=== PATIENT | male | born 1960 | race Caucasian/White ===

== ENCOUNTER 2022-11-27 08:28 | Outpatient (REF) | payer OTHER, SELFPAY | END 2022-11-27 08:29 | disposition home or self-care (01) | LOC: HO.LAB 08:28 | PROVIDERS: Visit Provider Surgery | DX: Z13.89 Encounter for screening for other disorder (principal) ==

== ENCOUNTER 2022-11-29 07:43 | Outpatient (REF) | payer OTHER, SELFPAY ==
[2022-11-29 08:57] LABS: Alanine Aminotransferase 31 U/L (0-40); Albumin Level 4.1 g/dL (3.5-5.0); Alkaline Phosphatase 62 U/L (39-117); Anion Gap 12 (12-20); Aspartate Amino Transferase 27 U/L (5-37); Bilirubin Total 1.2 mg/dL (0.0-1.0); Blood Urea Nitrogen 20 mg/dL (9-16); Calcium 9.1 mg/dL (8.4-10.2); Carbon Dioxide 24 mmol/L (22-29); Chloride 108 mmol/L (96-108); Cholesterol 239 mg/dL; Estimated Glomerular Filt Rate > 60; Glucose Fasting 96 mg/dL (60-99); HDL Cholesterol 47 mg/dL; LDL Cholesterol Calculated 179 mg/dl; Potassium 4.5 mmol/L (3.3-5.1); Sodium 139 mmol/L (135-145); Total Protein 7.4 g/dL (6.5-8.0); Triglycerides 67 mg/dL
[2022-11-29 09:11] LABS: Prostate Specific Antigen 1.28 ng/mL (<0.05-4.0)
== END 2022-11-29 07:44 | disposition home or self-care (01) ==
LOC: HO.LAB 07:43
PROVIDERS: Visit Provider Surgery
DX: Z12.5 Encounter for screening for malignant neoplasm of prostate (principal)
CPT/HCPCS: 36415; 80053; 80061; 84153

== ENCOUNTER 2023-06-29 07:58 | Outpatient (REF) | payer OTHER, SELFPAY ==
--- NOTE | ~2023-06-29 | MR_ITS ---
EXAMINATION: MR CERVICAL SPINE WITHOUT CONTRAST CLINICAL INFORMATION: Evaluate for radiculopathy/stenosis. COMPARISON: There are no prior studies available for comparison at time of dictation. TECHNIQUE: MRI of the cervical spine was obtained using routine sequences without contrast. Some images are degraded by patient motion artifact. FINDINGS: VERTEBRAL BODIES AND PARASPINAL SOFT TISSUES: There is reversal of the normal cervical lordosis. There is a mild anterolisthesis of C2 on C3, and there are mild retrolistheses of C3 on C4 and C5 on C6. There is multilevel narrowing of intervertebral disc height which is most severe at C5-C6 and C6-C7. There are degenerative endplate contour changes with mild edematous signal toward the left at C5-C6 and anteriorly at C6-C7. Vertebral body heights are maintained, and no fractures are demonstrated. Overall, marrow signal is homogenous. The regional soft tissues are unremarkable. CERVICOMEDULLARY JUNCTION AND VISUALIZED POSTERIOR FOSSA: The craniocervical and posterior fossa structures are normal. There are small foci of increased signal within the spinal cord left right of midline at the level of C6, most consistent with myelomalacia. There is an equivocal focus on the right at the level of C5. There is apparent thickening of the posterior longitudinal ligament between C2-C3 and C6-C7. SPINAL LEVELS: C2-C3: There is mild bilateral facet arthropathy. Posterior disc contour is normal with no spinal cord compression or central stenosis. There are uncovertebral osteophytes and there is moderate left and mild right foraminal narrowing. C3-C4: There is mild bilateral facet arthropathy. There is a broad-based posterior disc protrusion which effaces CSF around the cord without spinal cord compression. There is mild central stenosis. There are uncovertebral osteophytes, and there is severe right and moderate severe left foraminal narrowing. C4-C5: There is mild bilateral facet arthropathy. There is a posterior disc protrusion which is focally more prominent to the left of midline. There is effacement of CSF around the cord with mild cord compression, and there is moderate to severe central stenosis. There are uncovertebral osteophytes bilaterally and there is severe bilateral foraminal narrowing. C5-C6: There is mild bilateral facet arthropathy. There is a broad-based disc protrusion eccentrically more prominent on the right, and there is effacement of CSF around the cord and cord compression, and there is severe central stenosis. There is severe bilateral foraminal narrowing. C6-C7: There is mild bilateral facet arthropathy. There is a broad-based posterior disc protrusion which effaces CSF around the cord, but there is no spinal cord compression. There is moderate central stenosis. There are uncovertebral osteophytes and there is severe bilateral foraminal narrowing. C7-T1: There is moderate right and mild left facet arthropathy. Posterior disc contour is normal and there is no cord compression or central stenosis. There is mild bilateral foraminal narrowing. MR/MR cervical spine wo con IMPRESSION: 1. At C5-C6 there is a broad-based posterior disc protrusion with effacement of CSF around the cord and cord compression, and there is severe central stenosis. There is severe bilateral foraminal narrowing. 2. At C4-C5 there is a posterior disc protrusion which is focally more prominent on the left. There is effacement of CSF around the cord with mild cord compression and there is moderate to severe central stenosis. There is severe bilateral foraminal narrowing. 3. At C6-C7 there is a broad-based posterior disc protrusion. There is no spinal cord compression, but there is moderate central stenosis. There is severe bilateral foraminal narrowing. 4. At C3-C4 there is a broad-based posterior disc protrusion. There is mild central stenosis. There is severe right and moderate left foraminal narrowing. 5. There are small foci of increased signal within the spinal cord as described above, consistent with myelomalacia. 6. This critical result was discussed with Darwin Almanza, by telephone on 07/05/2023 at 1:45 PM and it was ascertained that the content and urgency of the report was understood at the time of direct communication.
== END 2023-06-29 07:59 | disposition home or self-care (01) ==
LOC: HO.MRI 07:58
PROVIDERS: PCP Surgery; Visit Provider Orthopaedic Surgery
DX: M54.12 Radiculopathy, cervical region (principal)
CPT/HCPCS: 72141

== ENCOUNTER → 2023-07-16 08:25 | Outpatient (BNVA) | payer OTHER, SELFPAY | PROVIDERS: PCP Surgery; Visit Provider Anesthesiology ==

== ENCOUNTER → 2023-07-16 08:25 | Outpatient (AMB) | payer OTHER, SELFPAY ==
--- NOTE | 2023-07-16 08:26 | MHC.OFFVIS ---
Intake Vital Signs 07/16/23 08:55 BP 136/74 Blood Pressure Location Lt brachial Position Sitting Respiration 12 Pulse 72 Pulse Source Pulse Oximeter Pulse Oximetry (%) 97 Oxygen Delivery Method Room Air Intake Visit Reasons: RADICULOPATHY/STENOSIS, MRI 06/29/23/confirmed HPI HPI Comments History of Present Illness Details Dr. Reyna is very pleasant 63 years old gentleman who is in my office today to discuss the results of MRI which was ordered for him to evaluate weakness and numbness of the right upper shoulder in the projection of the deltoid muscle as well as intermittent shooting and aching pain in the projection of the same deltoid muscle and some radiation into the biceps the right as well as twitching sensation in the right biceps muscle. He reports that this pain started about 3 months ago. He was a subject of to orthopedic surgeries on bilateral shoulders and he went for consult to his orthopedic surgeon to discuss pain and numbness in the deltoid muscle. The surgical consult was that there is no longer any pathology in the shoulder, he was sent on x-ray and significant listhesis as well as loss of the lordosis of the cervical spine were noted. He was recommended to go to a pain specialist. He was sent to MRI results of which dictated as below. He currently is in physical therapy. He does once a day HEP. He has an appointment with neurosurgeon Dr. Dunaway to evaluate cervical spinal canal stenosis. His past medical history significant for history of kidney stones, he report 2 surgeries on bilateral shoulders. He denies alcohol he denies smoking cigarettes he denies recreational drugs. Review of Systems Const Denies fatigue, Denies weight gain and Denies weight loss Eyes Denies blurry vision ENT Reports Normal hearing present and Denies sore throat Card Denies dyspnea Resp Denies cough and Denies dyspnea GI Denies constipation and Denies diarrhea Denies dysuria and Denies urinary frequency Musc Reports atrophy (In the projection of the deltoid muscle on the right), Reports numbness and Reports tingling Neuro Reports Normal hearing present, Denies Abnormal speech present, Denies confusion, Reports numbness, Denies Sensory deficit (Neuro), Reports tingling and Denies tremor(s) Psych Denies abnormal sleep pattern, Denies confusion and Denies depression Endo Denies fatigue Physical Exam Const General: no acute distress; No confusion Orientation/consciousness: patient oriented x3 and No confusion Eyes General: appearance normal, both eyes and all related structures Pupils: Equal, round and reactive pupils present EOM: EOMs intact bilaterally Neck Other: On visual inspection there is significant decrease of the cervical lordosis. The range of motion of the cervical spine is not limited. Denies pain aggravation with flexing head forward or backwards. Denies aggravation of the pain with flexing head sideways on the left however reports increase of the pain with flexing head on the right. Reports that he cannot sleep because of that on the right side. Exhibits slight decrease of the muscular strength of the right deltoid muscle with elevation of the right shoulder compared to the left. Able to stand on bilateral tiptoes and bilateral heels. Able to elevate major toes in separation from the rest of the toes bilaterally. Lhermitte test is negative. Spurling test is negative bilaterally. Had extension alleviates pain in the shoulder minimally to moderately. Denies incontinence in with urine and/or stool. Denies urinary retention. Neck: Yes full ROM, Yes no meningeal signs, Yes supple and Yes no JVD Chest Chest palpation & inspection: normal inspection of the chest Resp Effort & Inspection: normal respiratory effort, able to speak in complete sentences, normal respiratory pattern, no audible wheezes and no cough Cardio Jugular venous distension: no JVD GI Inspection: Yes normal to inspection Neuro General: patient oriented x3, gait normal, no meningeal signs and No confusion Cranial nerves: Yes CN's II-XII intact bilaterally, Yes Equal, round and reactive pupils present, Yes Normal hearing present and Yes Ability to bilaterally elevate shoulders present Speech: No Abnormal speech present Gait exam (Neuro): Normal gait present Motor exam (neuro): 5/5 motor strength present throughout Sensory Exam: No Sensory deficit (Neuro) Extrem General: No pedal edema Psych Speech and movement: Normal speech and movement present Affect: normal affect Attitude: cooperative Thought process: Normal thought process present Thought content: Normal thought content present Insight: Good insight present (Psych) Judgement: Good judgement present (Psych) Results Reviewed Results Reviewed: MR CERVICAL SPINE WITHOUT CONTRAST CLINICAL INFORMATION: Evaluate for radiculopathy/stenosis. COMPARISON: There are no prior studies available for comparison at time of dictation. TECHNIQUE: MRI of the cervical spine was obtained using routine sequences without contrast. Some images are degraded by patient motion artifact. FINDINGS: VERTEBRAL BODIES AND PARASPINAL SOFT TISSUES: There is reversal of the normal cervical lordosis. There is a mild anterolisthesis of C2 on C3, and there are mild retrolistheses of C3 on C4 and C5 on C6. There is multilevel narrowing of intervertebral disc height which is most severe at C5-C6 and C6-C7. There are degenerative endplate contour changes with mild edematous signal toward the left at C5-C6 and anteriorly at C6-C7. Vertebral body heights are maintained, and no fractures are demonstrated. Overall, marrow signal is homogenous. The regional soft tissues are unremarkable. CERVICOMEDULLARY JUNCTION AND VISUALIZED POSTERIOR FOSSA: The craniocervical and posterior fossa structures are normal. There are small foci of increased signal within the spinal cord left right of midline at the level of C6, most consistent with myelomalacia. There is an equivocal focus on the right at the level of C5. There is apparent thickening of the posterior longitudinal ligament between C2-C3 and C6-C7. SPINAL LEVELS: C2-C3: There is mild bilateral facet arthropathy. Posterior disc contour is normal with no spinal cord compression or central stenosis. There are uncovertebral osteophytes and there is moderate left and mild right foraminal narrowing. C3-C4: There is mild bilateral facet arthropathy. There is a broad-based posterior disc protrusion which effaces CSF around the cord without spinal cord compression. There is mild central stenosis. There are uncovertebral osteophytes, and there is severe right and moderate severe left foraminal narrowing. C4-C5: There is mild bilateral facet arthropathy. There is a posterior disc protrusion which is focally more prominent to the left of midline. There is effacement of CSF around the cord with mild cord compression, and there is moderate to severe central stenosis. There are uncovertebral osteophytes bilaterally and there is severe bilateral foraminal narrowing. C5-C6: There is mild bilateral facet arthropathy. There is a broad-based disc protrusion eccentrically more prominent on the right, and there is effacement of CSF around the cord and cord compression, and there is severe central stenosis. There is severe bilateral foraminal narrowing. C6-C7: There is mild bilateral facet arthropathy. There is a broad-based posterior disc protrusion which effaces CSF around the cord, but there is no spinal cord compression. There is moderate central stenosis. There are uncovertebral osteophytes and there is severe bilateral foraminal narrowing. C7-T1: There is moderate right and mild left facet arthropathy. Posterior disc contour is normal and there is no cord compression or central stenosis. There is mild bilateral foraminal narrowing. MR/MR cervical spine wo con IMPRESSION: 1. At C5-C6 there is a broad-based posterior disc protrusion with effacement of CSF around the cord and cord compression, and there is severe central stenosis. There is severe bilateral foraminal narrowing. 2. At C4-C5 there is a posterior disc protrusion which is focally more prominent on the left. There is effacement of CSF around the cord with mild cord compression and there is moderate to severe central stenosis. There is severe bilateral foraminal narrowing. 3. At C6-C7 there is a broad-based posterior disc protrusion. There is no spinal cord compression, but there is moderate central stenosis. There is severe bilateral foraminal narrowing. 4. At C3-C4 there is a broad-based posterior disc protrusion. There is mild central stenosis. There is severe right and moderate left foraminal narrowing. 5. There are small foci of increased signal within the spinal cord as described above, consistent with myelomalacia. 6. This critical result was discussed with Darwin Almanza by telephone on 07/05/2023 at 1:45 PM and it was ascertained that the content and urgency of the report was understood at the time of direct communication. Assessment & Plan Assessment & Plan (1) Radiculopathy, cervical: Code(s): M54.12 - Radiculopathy, cervical region Plan: (2) Degeneration, intervertebral disc, cervical: Code(s): M50.30 - Other cervical disc degeneration, unspecified cervical region Plan: (3) Spondylosis of cervical spine: Code(s): M47.812 - Spondylosis without myelopathy or radiculopathy, cervical region Plan: (4) Spondylolisthesis, cervical region: Code(s): M43.12 - Spondylolisthesis, cervical region Plan: Plan Plan of care: 1. Continue physical therapy, increase number of home exercise programs to at least 3 times a day at least 15 20 minutes at a time. 2. Patient has an appointment with neurosurgeon. Discussed possibility of decompression C4-C5 versus which full waiting. 3. Low impact aerobic exercise is recommended such is elliptical machine stationary bicycle or swimming. High impact aerobic exercise discouraged. 4. NSAIDs p.r.n. recommended versus 10 days of ibuprofen q.6 hours on the clock and and holiday with NSAIDs for at least 14 15 days. 5. Next appointment is as needed. Patient Instructions: I here by testify that I spent 45 minutes in conversation with this patient as well as in evaluation of his MRI prior to his visit. Coding Level of Care Code New Pt Level 4 (24884) Diagnoses Radiculopathy, cervical M54.12 Degeneration, intervertebral disc, cervical M50.30 Spondylosis of cervical spine M47.812 Spondylolisthesis, cervical region M43.12
[2023-07-16 08:55] VITALS: BP 136/74; PULSE 72; RESP 12; O2SAT 97
== END ==
PROVIDERS: Referring Provider Surgery; Visit Provider Anesthesiology
DX: M54.12 Radiculopathy, cervical region (principal); M50.30 Other cervical disc degeneration, unspecified cervical region; M47.812 Spondylosis without myelopathy or radiculopathy, cervical region; M43.12 Spondylolisthesis, cervical region
CPT/HCPCS: 99204

== ENCOUNTER 2023-07-25 09:58 | Outpatient (AMB) | payer OTHER, SELFPAY ==
--- NOTE | 2023-07-25 10:06 | MHC.OFFVIS ---
Intake Intake Visit Reasons: Neck pain Brine Purifier Required: No Assessment & Plan Assessment & Plan (1) Cervical myelopathy with cervical radiculopathy: Code(s): G95.9 - Disease of spinal cord, unspecified; M54.12 - Radiculopathy, cervical region (2) DJD (degenerative joint disease) of cervical spine: Code(s): M47.812 - Spondylosis without myelopathy or radiculopathy, cervical region Qualifiers: Spinal osteoarthritis complication: with myelopathy Qualified Code(s): M47.12 - Other spondylosis with myelopathy, cervical region Plan Dear colleague Thank you for referring Javier Reyna to the office today with a chief complaint of right arm pain, weakness and atrophy. 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 In addition, significant weakness of his deltoid muscle developed. Initially, he thought it was related to his shoulder but this was excluded. Over time the pain gradually improved. Currently, the pain is manageable. The pain becomes more prominent with driving and sleeping. He takes a Tylenol for pain control. He went to physical therapy for muscle exercises which have improved his deltoid weakness: He can now abduct his right shoulder against gravity. He denies numbness. He denies dexterity loss.He denies balance problems. He denies urinary problems. PMH: Bilateral shoulder surgery kidney stone removal Medications: None Allergies: None Social history: Nonsmoker Physical Exam: Pleasant male. On inspection there is atrophy of the deltoid and biceps muscles on the right side. There is a grade 3/5 paresis of the right deltoid muscle and a grade 4/ 5 paresis of the biceps muscle. The distal musculature is intact. There is no sensory loss. There is hyper reflexia of the lower extremities. Bilateral ankle clonus and a pathological Odalis reflex bilaterally. Radiological Studies: MRI done at [facility] [place] [facility] on 06/29/2023 shows severe spinal cord compression at C4-5 and C5-C6 with myelomalacia due to a disc osteophyte complex. In addition there is severe bilateral foraminal narrowing. The C6-7 level shows bilateral C7 foraminal stenosis but no spinal cord compression. Impression/Plan: This 63-year-old gentleman suffering from a right radiculopathy with pain weakness and atrophy and signs of cervical myelopathy from severe spinal cord compression at C4-5 and C5-6. The clinical signs and myelomalacia on MRI warrants a rather urgent intervention. Therefore I advised him to undergo a C4-5 and C5-C6 anterior diskectomy fusion to decompress the spinal cord and exiting nerve roots. I did not include C6-C7 in this procedure as he has currently not symptomatic from this level. I described the procedure possible complications and he wants to proceed. He is scheduled for 08/07/2023. Thank you for allowing me to participate in your patients care. total time spent was 50 minutes in counseling ,coordination of plan, personal review of imaging, surgical decision making and subsequent plan Moreno Dunaway MD, PhD Spine [facility] Trained Neurosurgeon Director, [facility] Coding Level of Care Code New Pt Level 4 (62243) Diagnoses Cervical myelopathy with cervical radiculopathy G95.9; M54.12 Osteoarthritis of cervical spine with myelopathy M47.12 Spinal osteoarthritis complication: with myelopathy
== END 2023-07-25 10:18 | disposition home or self-care (01) ==
PROVIDERS: PCP Surgery; Visit Provider Neurological Surgery
DX: G95.9 Disease of spinal cord, unspecified (principal); M54.12 Radiculopathy, cervical region; M47.12 Other spondylosis with myelopathy, cervical region
CPT/HCPCS: 99204

== ENCOUNTER → 2023-07-25 09:58 | Outpatient (BNVA) | payer OTHER, SELFPAY | PROVIDERS: PCP Surgery; Visit Provider Neurological Surgery ==

== ENCOUNTER 2023-07-31 12:00 | Outpatient (RCR) | payer OTHER, SELFPAY | END 2023-09-10 15:16 | disposition home or self-care (01) | LOC: HO.PT 12:00 | PROVIDERS: PCP Surgery; Visit Provider Orthopaedic Surgery | DX: M54.12 Radiculopathy, cervical region (principal) | CPT/HCPCS: 97012; 97110; 97140; 97161 ==

== ENCOUNTER 2023-08-07 06:00 | Day surgery (SDC) | payer OTHER, SELFPAY ==
[2023-07-31 09:42] VITALS: BMI 28.7
[2023-08-07] VITALS (13 sets, daily range): BP systolic 113–154; BP diastolic 66–106; PULSE 77–108; RESP 14–18; TEMP 36.2–36.7; O2SAT 94–98; BMI 28.9; BMI 30.3
--- NOTE | ~2023-08-07 | FL_ITS ---
EXAMINATION: XR FLUOROSCOPY WITH IMAGES CLINICAL INFORMATION: C4-C5 and C5-C6 anterior discectomies and fusions. COMPARISON: Portions of the MRI cervical spine dated 06/15/2023. TECHNIQUE: Fluoroscopy Supervised By: Dr. Moreno Dunaway. Fluoroscopy Time: 0.0 minutes. Cumulative Dose: 3.60 mGy. DAP: 0.476 Gycm2. Images: 5. FINDINGS: The submitted images show application of anterior Low Profile fixator devices to the C4-C5 and C5 levels. FL/FL guidance in OR IMPRESSION: Intraoperative fluoroscopic guidance is provided during C4-C5 and C5-C6 anterior discectomies and fusions. Please see the patient's Operative Report for full procedural details.
--- NOTE | ~2023-08-07 | XR_ITS ---
EXAMINATION: XR CERVICAL SPINE CLINICAL INFORMATION: Status-post anterior cervical discectomy and fusion. COMPARISON: MRI cervical spine dated 07/05/2023; intraoperative fluoroscopy dated 08/07/2023. TECHNIQUE: AP and lateral views of the cervical spine were obtained. FINDINGS: Vertebral body heights and alignment are normal. At C3-C4, there is mild to moderate disc space narrowing. There is well-maintained alignment status-post C4-C5 and C5-C6 anterior cervical discectomies and fusions, with intact anterior Low Profile fixator devices. There is moderately severe disc space narrowing at C6-C7. No acute fracture or spondylolisthesis is seen. There is multi-level cervical spondylosis and facet arthropathy. The posterior elements are intact. There are calcifications of the ligamentum nuchae. The dens is intact. No prevertebral soft tissue swelling or gas is seen. XR/XR cervical spine 2V IMPRESSION: 1. There is well-maintained alignment status-post C4-C5 and C5-C6 anterior cervical discectomies and fusions. No hardware failure or loosening is seen. 2. There is mild to moderate degenerative disc disease at C3-C4, and moderately severe degenerative disc disease is seen at C6-C7. 3. There is multi-level cervical spondylosis and facet arthropathy.
[2023-08-07] MEDS: methocarbamoL 750 MG TABLET PO (06:19)
[2023-08-07] MEDS: Gabapentin 300 MG CAPSULE PO (06:19)
--- NOTE | 2023-08-07 07:12 | MHC.SHP ---
Pre-Procedural Eval Section A - 24 Hr Update-Section A only Date of Service: 08/07/23 The patient is an INPATIENT: No Changes since office visit: No Cold of Flu in the past 2 weeks, No New Medical Problems, No Changes in Medication and No Patient answered all questions The patient has been examined within 24 hours of the surgical procedure. The History & Physical has been completed within 30 days and I have reviewed it.: No Section B - Complete if H&P > 30 days Chief Complaint: Transient cerebral ischemic attack, unspecified Allergies: Allergies Allergy/AdvReac Type Severity Reaction Status Date / Time No Known Allergies Allergy Verified 07/31/23 09:26 Review of Systems Sugical H&P ROS: Negative: Constitution, Cardiovascular, Respiratory, Neurological, Psychiatric, Hem-Onc, Allergic/Immunologic, Gastrointestinal, Genitourinary, Musculoskeletal, Integumentary, Endocrine and Eyes/Ears/Nose/Throat Exam Surgical H&P Exam: Not Evaluated: HEENT, Not Evaluated: Heart, Not Evaluated: Lungs, Not Evaluated: Extremities, Not Evaluated: Abdomen, Not Evaluated: Skin and Not Evaluated: Neurological Plan Diagnosis/Plan: Unchanged C4-5, c5-6 anterior cervical diskecctomy and fusion Time Spent With Patient Time: Total time managing care of this patient today _6___ minutes.
--- NOTE | 2023-08-07 07:15 | P.CONAN_ITS ---
HPI - Anesthesia Eval Consult details Narrative: 63 yo M presenting for ACDF C4-5 and C5-6. [facility] Active Problems Active Problems: All Active Problems (Updated 07/31/23 @ 09:24 by Africa Alonzo RN) DJD (degenerative joint disease) of cervical spine (Acute) Cervical myelopathy with cervical radiculopathy (Acute) Spondylolisthesis, cervical region (Acute) Spondylosis of cervical spine (Acute) Degeneration, intervertebral disc, cervical (Acute) Radiculopathy, cervical (Acute) Past Medical History Medical History Radiculopathy, cervical DJD (degenerative joint disease) of cervical spine Family History Family history of problems with anesthesia: No Surgical History Surgical History Hx of cystoscopy Hx of shoulder surgery History of Problems with Anesthesia: No Social History Social History Do you presently have visiting nurse or other home services: No Patient Tobacco Use Status: Never used Tobacco Use of substances other than those prescribed or required for medical reasons: No Have you been hit, kicked, punched, or otherwise hurt by someone within the past year? If so, by whom?: No Are you DNR?: No Advance Directives: No Advance Directives Information Provided: Yes Advance Directives on File: No Recently lost weight without trying: No Eating poorly because of decreased appetite: No Nutrition Risks: No Nutritional Risk Poor oral hygiene: No Meds Allergies Allergy/AdvReac Type Severity Reaction Status Date / Time No Known Allergies Allergy Verified 07/31/23 09:26 Home Medications Medication Instructions Recorded Confirmed Last Taken Type No Known Home Meds 07/31/23 07/31/23 Unknown History Exam Exam Date and Time: August 07, 2023 0715 Height,Weight and Vital Signs: Height 5 ft 11.75 in Weight 96.162 kg Last Vital Signs Temp 97.7 F 08/07/23 06:28 Pulse 98 08/07/23 06:28 Resp 16 08/07/23 06:28 BP 148/106 H 08/07/23 06:28 Pulse Ox 98 08/07/23 06:28 O2 Del Method Room Air 08/07/23 06:28 Airway Mallampati Class: II TM Dist: >3cm Neck ROM: Limited Loose/Missing/Broken Teeth: No Heart: S1S2 Lungs: CTAB Assessment and Plan Assessment Anesthesia Assessment: Anesthesia Plan Discussed and Chart Reviewed Final Anesthetic Review Family History of Problems with Anesthesia: No History of Problems with Anesthesia: No NPO: Yes ASA Class: I Final Preanesthetic Review: No Changes in Pt Med Stat, Meds/Allgs Chart Reviewed, Consent Obtained/Reviewed and Anes Risks/Benef Reviewed Patient Risk: Low Procedure Risk: Intermediate Anesthetic Plan Anesthetic Plan: GA and Agree w/ Assess. and Plan Disposition: Standard PACU
--- NOTE | 2023-08-07 09:56 | P.OP_ITS ---
Operative Note Operative Note Date of Service: 08/07/23 Narrative: Preoperative Diagnosis: Cervical myelo radiculopathy, right upper arm weakness Procedure: C4-5 and C5-6 Anterior discectomy, arthrodesis and implantation cage ; C4-C6 anterior instrumentation ; local autograft; microscope Informed Consent was obtained for this operation. I have explained the nature, purpose and benefits of the operation. I have discussed the risks and benefit of the operation including possible complications or adverse events with patient/family. Alternative(s) were discussed with the patient with their relative benefits and risks as well as the consequences of not accepting the operation were included in obtaining consent. Surgeon: PINA CAMPOS MD, PHD Procedure Assisted By: josue Boyd Description of Procedure: This 63-year-old male is suffering from persistent right arm pain, profound deltoid weakness and signs of cervical myelopathy on physical exam. An MRI showed severe degenerative disc disease C4-5, C5-6 and C6-7. More importantly there severe spinal cord compression at C4-5 and C5-C6 with myelomalacia. He was offered a 2 level decompression. We will leave the C6-C7 alone as there is no spinal cord compression. The procedure complications were explained. The patient was consented. The patient was brought to the operating room and endotracheally intubated. The patient was put in supine position with slight extension of the neck. Prep and drape was done followed by timeout. A mid cervical incision was made followed by opening of the platysma. The prevertebral fascia was reached following the natural planes while the physician automotive service assistant provided manual retraction. The prevertebral fascia was opened to expose the disc space. A spinal needle was placed in the disk space to confirm the correct level with xray. The longus colli muscles were released bilaterally and a self retaining retractor was inserted. Large anterior osteophytes covering the C4-5 and C5-6 disc space were removed and saved for autograft. An initial diskectomy was done of C4-5 and C5-C6. Two [place] pins were placed in the C4 and C5 vertebral bodies and distraction was give over the interspace. The discectomy was completed toward the posterior annulus of the disc. The microscope was brought in. Theremainder of the discectomy was completed. Significant disc herniation was found at C4-5 compressing the spinal cord and the exiting C5 nerve root. The posterior ligament was resected to expose and decompress the underlying dura. Osteophytes were resected from the body of C4 and C5 to further decompress the spinal cord and saved for autograft. Bilateral foraminotomies were done. The endplates were prepared after which a 6 mm cage filled with autograft was inserted into the disc space. A separate attached plate was locked down with 2 x 14 mm screws as anterior instrumentation. Then attention was turned to C5-C6 disc space. Distraction was giving off the interspace after a pin was placed in the body of C6. The diskectomy was completed. At this level the spinal cord was produced by degenerative changes from large osteophytes compressing the spinal cord, predominantly on the right side. The posterior longitudinal ligament was opened and resected and large posterior osteophytes were resected from the body of C5-C6 to decompress the spinal cord. Bilateral foraminotomies for the to decompress the bilateral C6 nerve roots. The endplates were prepared after which a 6 mm cage filled with autograft was inserted into the disc space. A separate attached plate was locked down with 2 x 14 mm screws as anterior instrumentation. Final x-rays in AP and lateral projection showed a satisfactory position of the implants and anterior instrumentation The physician automotive service assistant took over. The [place] pin was removed. Hemostasis was done. He closed the incision in 2 layers with a 3-0 Vicryl. Steri-Strips used to approximate incision. An OpSite with Tegaderm was used to cover the incision. All sponge and needle counts were correct. Patient was extubated and transported in stable is to recovery room. Anesthesia: General Estimated Blood Loss (ml): 40 mL Duration of Surgery: 1 hour 45 minutes Postoperative Plan: Discharge home Complications: None
--- NOTE | 2023-08-07 10:36 | PHA.MEDREC ---
Pharmacy Consult ? Medication Reconciliation rn has completed the medication reconciliation, pharmacy reviewed.
--- NOTE | 2023-08-07 12:35 | PC.NURSE ---
Tolerating RA, Off 02, 94%, Voided 175cc.
--- NOTE | 2023-08-07 13:36 | PC.NURSE ---
Requesting ICE for pain, does not wants Narcotics at this time for neck pain.
[2023-08-07] MEDS: ondansetron HCL 4 MG/2 ML VIAL IVPUSH (14:46)
--- NOTE | 2023-08-07 14:51 | PC.NURSE ---
c/o nausea, medicated per eMAR, requesting Motrin for pain, does not want APAP or narcotics. MD Emelyn combs paged for meds.
[2023-08-07] MEDS: Ibuprofen 800 MG TABLET PO ×2 (15:57→23:41)
--- NOTE | 2023-08-07 16:43 | PC.NURSE ---
Pt requesting no Bed Alarm.
[2023-08-08 03:34] VITALS: BP 122/71; PULSE 66; RESP 18; TEMP 36.8; O2SAT 97
[2023-08-08 08:00] VITALS: BP 135/88; PULSE 78; RESP 18; TEMP 36.8; O2SAT 99
[2023-08-08] MEDS: Ibuprofen 800 MG TABLET PO (08:01)
--- NOTE | 2023-08-08 08:42 | P.DS_ITS ---
DS: Providers Provider Date of Service: 08/08/23 Primary care physician: Javier Reyna MD DS: Summary Time Attestation Discharge coordination time: Less than 30 minutes Quality: Safe Use of Opioids Does Pt have an Active Cancer Diagnosis on the Problem List?: No Quality: Stroke Does the patient have a stroke diagnosis?: No Physical Exam Vital Signs: Vital Signs: Last Vital Signs Temp 98.2 F 08/08/23 08:00 Pulse 78 08/08/23 08:00 Resp 18 08/08/23 08:00 BP 135/88 08/08/23 08:00 Pulse Ox 99 08/08/23 08:00 O2 Del Method Room Air 08/08/23 08:00 O2 Flow Rate 3.0 08/07/23 11:50 BMI result Body Mass Index 30.3 Discharge Plan Discharge Patient Disposition: Home, Self-Care Referrals: Javier Reyna MD [Primary Care Provider] - 1 Week Discharge Medications: No Action No Known Home Meds Discharge Orders: Discharge Order (Routine); Ordered 08/08/23 Ordered By: Kieran Mcnulty Diet: Advance to usual diet Activity on Discharge: As tolerated Activity Restrictions/Additional Instructions: After your spinal surgery we ask you to observe the following restrictions/guidelines: Activity: It is normal to feel some discomfort as you increase your activity, but that will improve with time. We ask you avoid heavy lifting or acitivities that cause pain. As a general rule, 8lbs is a safe limit for lifting right after surgery. Walk as much as you feel comfortable but not to exhaustion. You will feel extra tired the first few days after surgery. Stay well hydrated. It is OK to walk up and down stairs You may return to driving when you are off narcotics (such as vicodin, oxycodone, dilaudid, etc), and you are back to normal functional capacity. If you have any concerns please check with office before driving. Return to work is specific to each patient and each surgery, so please speak with your doctor/PA at first follow up. Please bring paperwork such as FMLA at that time if you need it filled out. Medications: We will give you a short supply of narcotics after surgery (usually one weeks worth). If you need more please call the office but do not use more than p rescribed. You will need to give our office 48 hours notice if you need narcotics refilled and we do not fill narcotics on weekends or evenings. If you are on a narcotic, it is a good idea to take a stool softener such as colace or senna to avoid constipation If you take blood thinner such as aspirin, Plavix, Coumadin, Effient, Eliquis etc for conditions such as Afib, DVT, Pulmonary embolus, coronary disease, stents etc please speak with your surgeon about specific details as to when you can resume these medications. You can resume NSAIDs on post op day 1 (eg: Motrin, Naproxen, etc). Follow up: Please call the office, , after surgery to arrange a 3 week follow up for wound check. Wound Care: You may remove your dressing on the first day after surgery. ?You may ?leave open to air. Please do not remove the steri strips underneath. they will fall off on their own in one week. IT IS NORMAL FOR THE WOUND TO OOZE OR BE BLOODY FOR A FEW DAYS AFTER SURGERY. ?IF THIS HAPPENS JUST PLACE NEW DRESSING OVER IT TO AVOID STAINING CLOTHES. You may shower on post op day # 1 We ask that you do not let the water soak the wound. If it does get wet, just towel dry lightly. Please do not scrub your incision or place any type of chemical/ointment on the wound. No tub baths, pools or jacuzzis for one month. If you have any leaking or redness from your wound, or fevers, please call the office.
--- NOTE | 2023-08-08 08:48 | HO.NEUROPN_ITS ---
Neurosurgery Operative Note Date of Service: 08/08/23 Narrative: POD: 1 Procedure: C4-5 and C5-6 ACDF Nish was seen this morning sitting upright in bed eating breakfast on . He reports that the pain in his right arm has largely resolved. He still reports some weakness with his right arm, but is hopeful this will improve with time as well. He states he has some tenderness near the incision site but otherwise is feeling well. He is up, ambulating to the bathroom, and tolerating diet well. He has no active IV lines or catheters in place. He states that he is controlling his pain well with [id number] pain medications. He does not feel that he needs narcotic pain control at this time. We discussed postoperative healing guidelines, and recommendations for postoperative care. We also discussed the possibility of physical therapy, which I suggested we discuss further at his follow-up postoperative appointments in clinic. I reviewed his x-ray imaging from this morning which showed stable placement of cage(s) and associated screws at C4-5 and C5-6. No changes noted when compared to fluoroscopy. Afebrile, vital signs stable. Right deltoid strength is 4/5. The rest of his upper extremity strength is 5/5. No new neurological symptoms. Anterior neck dressing is dry without any serosanguineous drainage. Plan: Patient meets criteria to be medically discharged home. He was advised that he may reach out to us via [facility] text or phone call for any questions or concerns. He was also encouraged to reach out to us if [id number] pain control is not sufficient for him. He will call our office to book his 1st postoperative appointment.
--- NOTE | 2023-08-08 09:47 | MHC.CM.PN ---
Patient discharged to home self care prior to being seen by case management. He arranged for transportation home.
--- NOTE | 2023-08-08 14:30 | HO.POSTANES ---
Post Anesthesia Evaluation Post Anesthesia Evaluation Date of Service: 08/08/23 Vital Signs: Vital Signs Temp Pulse Resp BP Pulse Ox O2 Del Method 08/08/23 08:00 98.2 F 78 18 135/88 99 Room Air 08/08/23 03:34 98.2 F 66 18 122/71 97 Room Air Anesthesia: General Endotracheal-GETA Mental Status: Awake Pain Control: Satisfactory Nausea/Vomiting: None Hydration: Adequate Anesthesia-Related Issues: No Anes. Related Issues
== END 2023-08-08 09:13 | disposition home or self-care (01) ==
LOC: HO.SSS 06:01 → HO.S3 10:20
PROVIDERS: PCP Surgery; Visit Provider Neurological Surgery
PROC: (CPT 22551; principal; 2023-08-07 07:30)
DX: G95.9 Disease of spinal cord, unspecified (principal); M54.12 Radiculopathy, cervical region; M47.12 Other spondylosis with myelopathy, cervical region
CPT/HCPCS: 22551; 22552; 22853; 20936; 22845; 72040; 99024; C1713; J0131; J0690; J1100; J1170; J2250; J2371; J2405; J2704; J3010

== ENCOUNTER → 2023-08-07 06:00 | Outpatient (BNV) | payer OTHER, SELFPAY | PROVIDERS: PCP Surgery; Visit Provider Neurological Surgery | DX: M50.021 Cervical disc disorder at C4-C5 level with myelopathy (principal); M50.022 Cervical disc disorder at C5-C6 level with myelopathy | CPT/HCPCS: 20936; 22551; 22552; 22845; 22853; 99499 ==

== ENCOUNTER 2023-09-05 11:30 | Outpatient (REF) | payer OTHER, SELFPAY ==
--- NOTE | ~2023-09-05 | XR_ITS ---
EXAMINATION: XR CERVICAL SPINE CLINICAL INFORMATION: Status-post arthrodesis. COMPARISON: Cervical spine radiographs dated 08/08/2023 TECHNIQUE: Frontal and lateral (neutral, flexion and extension) views of the cervical spine were obtained. FINDINGS: Vertebral body heights and alignment are normal. At L3-L4, there is moderately severe disc space narrowing and mild anterior endplate arthropathy. There is well-maintained alignment status-post C4-C5 and C5-C6 anterior discectomies and fusions, with intact anterior Low Profile fixator devices. No hardware failure or loosening is seen there is no instability with flexion or extension. At C6-C7, there is moderately severe disc space narrowing, with anterior endplate arthropathy. No acute fracture or spondylolisthesis is seen. The posterior elements are intact. There is facet arthropathy, most pronounced at C2-C3. There are calcifications of the ligamentum nuchae. The dens is intact. No prevertebral soft tissue swelling is seen. XR/XR cervical spine 4V IMPRESSION: 1. There is well-maintained alignment status-post C4-C5 and C5-C6 anterior discectomies and fusions. No hardware failure or loosening is seen. There is no instability with flexion or extension. 2. There is moderately severe degenerative disc disease at C3-C4 and C6-C7.
== END 2023-09-05 11:31 | disposition home or self-care (01) ==
LOC: HO.HOSX 11:30
PROVIDERS: Visit Provider Neurological Surgery
DX: Z98.1 Arthrodesis status (principal)
CPT/HCPCS: 72050

== ENCOUNTER 2023-09-05 12:12 | Outpatient (AMB) | payer OTHER, SELFPAY ==
--- NOTE | 2023-09-05 12:16 | HO.SPINEOV ---
Intake Intake Visit Reasons: ? Mailer Required: No Allergies No Known Allergies Allergy (Verified 07/31/23 09:26) Assessment & Plan Assessment & Plan (1) Status post cervical spinal fusion: Code(s): Z98.1 - Arthrodesis status Plan Dear colleague, On 09/05/2023, I saw for postoperative visit Ramy Reyna for a new right trapezius pain that developed after vigorous coughing. The pain does not radiate down his arm. His neurological exam is unchanged, in fact shows increased strength of his deltoid compared to preoperatively. Most likely the vigorous coughing for several days has irritated the nerve root and this should subside. Currently Tylenol is working. An x-ray today shows stable construct C4-5 and C5-C6. We will continue to monitor his symptoms. Moreno Dunaway MD, PhD Spine Fellowship Trained Neurosurgeon Director, [facility] Coding Level of Care Code Global (45630) Diagnoses Status post cervical spinal fusion Z98.1
== END 2023-09-05 12:21 | disposition home or self-care (01) ==
PROVIDERS: PCP Surgery; Visit Provider Neurological Surgery
DX: Z98.1 Arthrodesis status (principal)
CPT/HCPCS: 99024

== ENCOUNTER 2024-01-30 08:10 | Outpatient (AMB) | payer OTHER, SELFPAY ==
--- NOTE | 2024-01-30 08:26 | A.OFFVIS_ITS ---
Vital Signs 01/30/24 08:53 BP 133/79 Blood Pressure Location Lt brachial Position Sitting Respiration 16 Pulse 70 Pulse Source Pulse Oximeter Pulse Oximetry (%) 96 Oxygen Delivery Method Room Air Intake Visit Reasons: NECK PAIN Intake Note: Patient comes in for neck pain. 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 Initially I examined him in June of 2023, he had complains on pain and weakness in the deltoid muscle on the right. He was sent for MRI and discovered spinal stenosis of the cervical spine with disc protrusions advancing to were the spinal cord and corresponding meal myelomalacia. He was referred to Dr. Dunaway and he was operated with 2 levels ACDF. Postoperative period was very benign, the patient reported improvement of the deltoid muscle strength, decrease of the pain, improvement of the mobility. However in August of 2023 he started to complain on pain as described above. Physical exam is as below. I am convinced today that most likely his pain is related to atlantooccipital joint however possibility of muscular spasm and myofascial pain syndrome can not be excluded. We agreed that I will perform trigger point injection in the most painful area to diagnose and potentially treat his pain if it is mostly superficial. If there will be no significant improvement I will refer him to [facility] for right atlanto occipital joint steroid injection. [facility] Medical History (Updated 01/30/24 @ 08:41 by Giovanni Briceno MD) Radiculopathy, cervical DJD (degenerative joint disease) of cervical spine Surgical History (Updated 09/05/23 @ 11:31 by Moreno Dunaway MD, PhD) Hx of cystoscopy Hx of shoulder surgery Social History Household Members: Significant Other Housing: Condominium Do you presently have visiting nurse or other home services: No Patient Tobacco Use Status: Never used Tobacco Review of Systems Const Denies fatigue, Denies weight gain and Denies weight loss Eyes Denies blurry vision ENT Reports Normal hearing present and Denies sore throat Card Denies dyspnea Resp Denies cough and Denies dyspnea GI Denies constipation and Denies diarrhea Denies dysuria and Denies urinary frequency Musc Reports atrophy (In the projection of the deltoid muscle on the right), Reports numbness and Reports tingling Neuro Reports Normal hearing present, Denies Abnormal speech present, Denies confusion, Reports numbness, Denies Sensory deficit (Neuro), Reports tingling a nd Denies tremor(s) Psych Denies abnormal sleep pattern, Denies confusion and Denies depression Endo Denies fatigue Physical Exam Vital Signs: Last Vital Signs Pulse 70 01/30/24 08:53 Resp 16 01/30/24 08:53 BP 133/79 01/30/24 08:53 Pulse Ox 96 01/30/24 08:53 Oxygen Delivery Method Room Air 01/30/24 08:53 Const General: No confusion Orientation/consciousness: No confusion Eyes General: appearance normal, both eyes and all related structures Pupils: Equal, round and reactive pupils present EOM: EOMs intact bilaterally Neck Other: On visual inspection there is significant decrease of the cervical lordosis. The range of motion of the cervical spine is not limited. Denies pain aggravation with flexing head forward or backwards. Denies aggravation of the pain with flexing head sideways on the left however reports increase of the pain with flexing head on the right. Reports that he cannot sleep because of that on the right side. Exhibits slight decrease of the muscular strength of the right deltoid muscle with elevation of the right shoulder compared to the left. Able to stand on bilateral tiptoes and bilateral heels. Able to elevate major toes in separation from the rest of the toes bilaterally. Lhermitte test is negative . Spurling test now is positive on the right. There is severe tenderness on palpation at the base of the right occipital skull. Coughing and sneezing aggravates his pain. Neck: Yes full ROM, Yes no meningeal signs, Yes supple and Yes no JVD Chest Chest palpation & inspection: normal inspection of the chest Resp Effort & Inspection: normal respiratory effort, able to speak in complete sentences, normal respiratory pattern, no audible wheezes and no cough Cardio Jugular venous distension: no JVD GI Inspection: Yes normal to inspection Neuro General: no meningeal signs and No confusion Cranial nerves: Yes Equal, round and reactive pupils present and Yes Normal hearing present Speech: No Abnormal speech present Gait exam (Neuro): Normal gait present Motor exam (neuro): 5/5 motor strength present throughout Sensory Exam: No Sensory deficit (Neuro) Extrem General: No pedal edema Psych Speech and movement: Normal speech and movement present Affect: normal affect Attitude: cooperative Thought process: Normal thought process present Thought content: Normal thought content present Insight: Good insight present (Psych) Judgement: Good judgement present (Psych) Assessment & Plan Assessment & Plan (1) Status post cervical spinal fusion: Code(s): Z98.1 - Arthrodesis status Category: Surgical (2) DJD (degenerative joint disease) of cervical spine: Code(s): M47.812 - Spondylosis without myelopathy or radiculopathy, cervical region Category: Medical Qualifiers: Spinal osteoarthritis complication: with myelopathy Qualified Code(s): M47.12 - Other spondylosis with myelopathy, cervical region (3) Myofascial pain syndrome: Code(s): M79.18 - Myalgia, other site Category: Medical Plan: Trigger point injection right neck. Informed consent was obtained. Risks and benefits were explained including risk of bleeding infection peripheral nerve damage, as well as risks of ad ministration of the steroid medications. The patient positioned sitting on the examination bed. The most painful area was marked with blue marker. The area was prepped with ChloraPrep, sterilely obtained 3 cc of bupivacaine mixed with Kenalog 10 mg were injected into the area of most painful point in fan-like fashion with the spread of the medication mostly at the base of the right occiput. The patient tolerated procedure well. He reported immediate however minimal to moderate improvement. (4) Atlanto-occipital joint sprain: Code(s): S13.4XXA - Sprain of ligaments of cervical spine, initial encounter Category: Medical Plan Care plan: The above injection was therapeutic as well as diagnostic. Potentially this pain could be related to significant changes at atlantooccipital joint on the right. If this will not be helpful for the patient's pain on the long run injection into the right atlantooccipital joint could be undertaken, for that patient will be referred to [facility] pain management. Coding Level of Care Code Est Pt Level 3 (24644) Procedure Only Diagnoses Status post cervical spinal fusion Z98.1 Osteoarthritis of cervical spine with myelopathy M47.12 Spinal osteoarthritis complication: with myelopathy Myofascial pain syndrome M79.18 Atlanto-occipital joint sprain S13.4XXA
[2024-01-30 08:53] VITALS: BP 133/79; PULSE 70; RESP 16; O2SAT 96
== END 2024-01-30 08:32 | disposition home or self-care (01) ==
PROVIDERS: PCP Surgery; Visit Provider Anesthesiology
DX: M47.12 Other spondylosis with myelopathy, cervical region (principal); S13.4XXA Sprain of ligaments of cervical spine, initial encounter; M79.18 Myalgia, other site; Z98.1 Arthrodesis status
CPT/HCPCS: 20552; 99213

== ENCOUNTER → 2024-01-30 08:10 | Outpatient (BNVA) | payer OTHER, SELFPAY | PROVIDERS: PCP Surgery; Visit Provider Anesthesiology | DX: M47.12 Other spondylosis with myelopathy, cervical region (principal); M79.18 Myalgia, other site; S13.4XXA Sprain of ligaments of cervical spine, initial encounter; Z98.1 Arthrodesis status | CPT/HCPCS: 20552; J0665; J3301 ==

== ENCOUNTER 2024-08-06 07:04 | Outpatient (REF) | payer OTHER, SELFPAY ==
--- OUTSIDE RECORDS SUMMARY | 2024-08-06 07:07 | XMS_ITS | Clinical Summary ---
Author Organization [facility] Address [address] [place] [address] Care Team Providers Care Joss House Keeper Name Role Phone Asad Velez Primary Care Provider [phone] Allergies No known active allergies Medications No known medications Social History Tobacco Use Types Packs/Day Years Used Date Smoking Tobacco: Never Smokeless Tobacco: Never Alcohol Use Standard Drinks/Week Comments No 0 (1 standard drink = 0.6 oz pur e alcohol) Sex and Gender Information Value Date Recorded Sex Assigned at Not on file Legal Sex Male 7:12 PM EDT Gender Identity Not on file Sexual Orientation Not on file Last Filed Vital Signs Vital Sign Reading Time Taken Comments Blood Pressure 117/89 07/24/2021 4:05 PM EST Pulse 61 07/24/2021 4:05 PM EST Temperature 35.7 ??C (96.2 ??F) 07/24/2021 4:05 PM ES T Respiratory Rate 18 07/24/2021 4:05 PM EST Oxygen Saturation 99% 07/24/2021 4:05 PM EST Inhaled Oxygen Concentration - - Weight 94.8 kg (209 lb) 07/24/2021 12:46 PM EST Height 180.3 cm (5' 11 ) 07/24/2021 12:46 PM EST Body Mass Index 29.15 07/24/2021 12:46 PM EST Plan of Treatment Health Maintenance Due Date Last Done Comments CT Colonography 1959 Colonoscopy 1959 FIT 1959 FOBT 1959 Flex Sigmoidoscopy - 5y 1959 HIV Screening 1959 DTaP,Tdap,and Td Vaccines (1 - Tdap) 1977 Zoster Vaccines (1 of 2) 2009 COVID-19 Vaccine ( - 2023-2 5 season) 2024 Influenza Vaccine (#1) 2024 Pneumococcal Vaccine, 65+ Ye ars (1 of 1 - PCV) 2024 Colorectal Cancer Screening 03/22/2025 FIT-DNA (Cologuard) 03/22/2025 03/22/2022 HPV Vaccines Aged Out No longer eligi ble based on patient's age to complete this topic Hepatitis A Vaccines Aged Out No long er eligible based on patient's age to complete this topic MMR Vaccines Aged Out No longer eligi ble based on patient's age to complete this topic Meningococcal Vaccine Aged Out No rian regina eligible based on patient's age to complete this topic Insurance [facility] [facility] Care Teams Joss House Keeper Relationship Specialty Start Date End Date Asad Velez [address] [place] [address] [address] [place] [address] PCP - General Infectious Diseases 07/24/21
[2024-08-06 07:19] LABS: MANUAL DIFF FLAG NO
[2024-08-06 07:56] LABS: Basophils Absolute Auto 0.1 X10*3/uL (0.0-0.2); Basophils Percent Auto 0.9 % (0-2); Eosinophils Absolute Auto 0.2 X10*3/uL (0.0-0.4); Eosinophils Percent Auto 2.7 % (0-4); Hematocrit 45.4 % (42.0-52.0); Hemoglobin 15.3 g/dl (14.0-18.0); Imm Gran Abs Auto 0.03 X10*3/uL (0.00-0.03); Imm Gran Pct Auto 0.5 % (0.0-0.4); Lymphocytes Absolute Auto 1.6 X10*3/uL (1.2-4.9); Lymphocytes Percent Auto 27.6 % (20-40); Mean Corpuscular HGB Conc 33.7 g/dl (31.0-36.0); Mean Corpuscular Hemoglobin 30.7 pg (27.0-33.0); Mean Corpuscular Volume 91.2 fL (80.0-98.0); Mean Platelet Volume 9.4 fL (9.4-12.4); Monocytes Absolute Auto 0.5 X10*3/uL (0.1-1.2); Monocytes Percent Auto 7.7 % (2-11); Neutrophils Absolute Auto 3.6 x10*3/uL (2.0-8.3); Neutrophils Percent Auto 60.6 % (45-73); Platelet Count 195 X10*3/uL (160-400); Red Blood Count 4.98 X10*6/uL (4.60-5.80); Red Cell Distribution Width 12.5 % (11.0-16.0); White Blood Count 5.9 X10*3/uL (4.8-10.8)
[2024-08-06 08:07] LABS: Estimated Average Glucose 117 mg/dL; Hemoglobin A1C 156.4763 umol/L; Hemoglobin A1c % 5.7 % (<6.0); Total Hemoglobin (HGBA1C) 4049.3874 umol/L
[2024-08-06 08:27] LABS: Anion Gap 11 (12-20); Blood Urea Nitrogen 15 mg/dL (9-16); Calcium 9.6 mg/dL (8.4-10.2); Carbon Dioxide 27 mmol/L (22-29); Chloride 106 mmol/L (96-108); Estimated Glomerular Filt Rate > 60; Glucose Fasting 100 mg/dL (60-99); Potassium 4.2 mmol/L (3.3-5.1); Sodium 140 mmol/L (135-145)
[2024-08-06 09:39] LABS: Cholesterol 235 mg/dL (<200); HDL Cholesterol 43 mg/dL (>40); LDL Cholesterol Calculated 169 mg/dL (<100); Triglycerides 116 mg/dL (<150)
[2024-08-12 14:33] LABS: Fructosamine 257 umol/L (205-285)
[2024-08-20 11:38] LABS: PSA, Ultra Sensitive 1.61 ng/mL
== END 2024-08-06 07:05 | disposition home or self-care (01) ==
LOC: HO.LAB 07:04
PROVIDERS: Visit Provider Surgery
DX: Z13.9 Encounter for screening, unspecified (principal); Z13.1 Encounter for screening for diabetes mellitus; Z12.5 Encounter for screening for malignant neoplasm of prostate; Z13.220 Encounter for screening for lipoid disorders
CPT/HCPCS: 36415; 80048; 80061; 82985; 83036; 84153; 85025

== ENCOUNTER 2024-10-21 08:00 | Outpatient (RCR) | payer OTHER, SELFPAY ==
--- NOTE | 2024-12-25 15:50 | MHC.PT.DC ---
[facility] [place] [facility] [place] [facility] [place] [facility] [address] Alondra Paredes [address] [phone] F: [phone] F: [phone] F: [phone] F: [phone] Physical Therapy Discharge Report Diagnosis: post-op cervical (RL) Date of Surgery: 08/07/23 Date of Evaluation: 09/18/23 Date of Discharge: 12/25/24 Treatments to Date: 52 Cancellations to Date: 2 No Shows to Date: 3 Discharge Status: Discharge Summary: The patient has not been seen in 2 months. Per last treatment note on 10/21/24: pt denied any tingling over the past week but mentioned he gets zings or shocks that feel like they occur in the ulnar distribution. They feel similar to when the funny bone is struck. Frequency is minimal. Continued w/ forearm IASTM but also added some pec tissue work to address more proximal tissue restrictions. Continued w/ pec extensibility as well. Continue to monitor. Advised pt to follow-up w/ neurosurgeon which he attempted; however, he is out of office. Will reach out when he returns. Electronically signed by: Clair Francis PT, DPT Please sign and return to therapist. Thank you for your referral.
== END 2024-12-25 15:51 | disposition home or self-care (01) ==
LOC: HO.PT 08:00
PROVIDERS: PCP Surgery; Visit Provider Neurological Surgery
DX: R29.898 Other symptoms and signs involving the musculoskeletal system (principal); Z98.1 Arthrodesis status
CPT/HCPCS: 97110; 97112; 97140; 97161; 97530